=== PATIENT | female | born 1960 | race Caucasian/White ===

== ENCOUNTER 2022-10-26 07:41 | Day surgery (SDC) | payer OTHER ==
[~2022-10-26] VITALS: Ht 160 cm; Wt 58.5 kg
[2022-10-26] MEDS ORDERED: diphenhydrAMINE 50 MG/ML VIAL ONE (08:35)
[2022-10-26] MEDS ORDERED: fentaNYL citrate 0.05 MG/ML VIAL ONE (08:35)
[2022-10-26] MEDS ORDERED: MIDAZOLAM 5 MG/5 ML VIAL ONE (08:36)
[2022-10-26] MEDS ORDERED: fentaNYL citrate 0.05 MG/ML VIAL IVP ONE (09:15)
[2022-10-26] MEDS ORDERED: MIDAZOLAM 5 MG/5 ML VIAL IV ONE (09:15)
== END 2022-10-26 10:36 | disposition home or self-care (01) ==
LOC: MDS 07:41 → MMU 07:42 → MDS 10:36
PROVIDERS: ATTEND Internal Medicine Gastroenterology
DX: K76.9 Liver disease, unspecified (principal); K29.50 Unspecified chronic gastritis without bleeding; R74.9 Abnormal serum enzyme level, unspecified; R13.10 Dysphagia, unspecified; K59.00 Constipation, unspecified; Z80.0 Family history of malignant neoplasm of digestive organs; Z20.822 Contact with and (suspected) exposure to COVID-19; Z88.5 Allergy status to narcotic agent
CPT/HCPCS: 43239; 87426; J2250; J3010; 88305; 88312; 88313; 88342; J1200